=== PATIENT | female | born 1950 | race Caucasian/White ===

== ENCOUNTER → 2018-02-23 | Outpatient (CLI) | payer BC, OTHER ==
[~2018-02-23] VITALS: Ht 160 cm; Wt 93.9 kg
[~2018-02-23] MED LIST: COZAAR100 MG PO; FIASP 100100 UNIT/1; MELATIN3 MG PO; SYNTHROID200 MCG PO; TRESIBA FL100 UNIT/1 SUBQ; VALIUM10 MG PO
--- NOTE | ~2018-02-23 | PATH ---
[facility] [address] [place] [address] PATHOLOGY RPT PROCEDURE Name: ELAINE LÓPEZ Room #: REG CLI M.R.#: [id number] Admission: 02/23/18 Date of : 50 Discharge: Report #: [id number] Path Case #: [id number] [facility] Accession Number: [id number] . 01 Material submitted: . POLYP AT CECUM . 01 Clinical history: . Pre-OP DX: Screening Post-OP DX: Colon polyp . 02 Diagnosis: Polyp, at cecum, endoscopic biopsy: - Tubular adenoma. - Negative for high grade dysplasia. . (IUV:mml; 02/24/18) QLM/02/24/2018 . 02 Electronically signed: . Yeimy Morris MD, Pathologist NPI- [id number] . 01 Gross description: . Received in formalin labeled "[place], Elaine, polyp at cecum," is a single segment of reyes soft tissue measuring 0.3 cm in maximum dimension. The specimen is entirely submitted in cassette A1. (TSD; 02/23/2018) TOB/TOB . 02 Pathologist provided ICD-10: D12.0 . 02 CPT . 705344 Specimen Comment: A courtesy copy of this report has been sent to Specimen Comment: [phone], . Specimen Comment: Report sent to / DR PORTILLO Specimen Comment: A duplicate report has been generated due to demographic updates. Performed at: [address], [place], [place] [id number] MD Issac Ford MD Phone: [phone] Performed at: [address] [id number] [address] [address] PATHOLOGY RPT PROCEDURE Name: ELAINE LÓPEZ Room #: REG GIANNI Pro#: [id number] Admission: 02/23/18 Date of : 50 Discharge: Report #: [id number] Path Case #: [id number] MD Yeimy Morris MD Phone: [phone]
== END | disposition home or self-care (01) ==
LOC: GI 08:09
DX: Z12.11 Encounter for screening for malignant neoplasm of colon (principal); D12.0 Benign neoplasm of cecum; K57.30 Diverticulosis of large intestine without perforation or abscess without bleeding; K64.8 Other hemorrhoids; I10 Essential (primary) hypertension; E11.9 Type 2 diabetes mellitus without complications; E03.9 Hypothyroidism, unspecified; E66.09 Other obesity due to excess calories; Z90.710 Acquired absence of both cervix and uterus; Z98.890 Other specified postprocedural states; Z79.899 Other long term (current) drug therapy; Z88.2 Allergy status to sulfonamides; Z88.8 Allergy status to other drugs, medicaments and biological substances; Z79.4 Long term (current) use of insulin; Z87.442 Personal history of urinary calculi; Z68.36 Body mass index [BMI] 36.0-36.9, adult; Z90.722 Acquired absence of ovaries, bilateral
CPT/HCPCS: 62110; 62900